=== PATIENT | male | born 1940 | race Caucasian/White ===

== ENCOUNTER → 2019-08-10 08:53 | Outpatient (CLI) | payer MEDICARE, OTHER, SELFPAY ==
--- NOTE | 2019-08-10 09:07 | RAD_ITS ---
STUDY: X-RAY CHEST REASON FOR EXAM: Male, 79 years old. cough and congestion for a couple weeks; sharp chest pain recently TECHNIQUE: PA and lateral views of the chest. COMPARISON: Prior study of 06/14/2017 FINDINGS: The lungs are clear and expanded. There is no demonstrated pleural abnormality. Normal size heart. Normal mediastinum and nette. Normal visualized pulmonary arteries. There are calcified plaques of the aortic arch. There are diffuse degenerative changes of the visualized thoracic spine. Normal visualized ribs, clavicles, and shoulders. There is no demonstrated abnormality of the visualized soft tissue structures of the upper abdomen. RAD/Chest PA and Lateral IMPRESSION: Calcified plaques of the aortic arch. Degenerative changes of the thoracic spine. No acute cardiopulmonary disease process is seen. Electronically Signed: Zaik Rocha MD at 19:51 EDT , Service support ,
== END ==
PROVIDERS: PCP Family Medicine; Referring Provider Physician Assistant; Visit Provider Physician Assistant
DX: R05 Cough (principal)
CPT/HCPCS: 71046

== ENCOUNTER 2020-03-18 17:49 | Emergency (ER) | payer MEDICARE, OTHER, SELFPAY ==
[2020-03-18 17:51] VITALS: BP 138/81; PULSE 89; RESP 18; TEMP 36.3; O2SAT 98; BMI 28.8
--- NOTE | 2020-03-18 18:09 | EKG12_ITS ---
Test Reason : ARM Blood Pressure : / mmHG Vent. Rate : 081 BPM Atrial Rate : 081 BPM P-R Int : 222 ms QRS Dur : 106 ms QT Int : 400 ms P-R-T Axes : 060 -40 053 degrees QTc Int : 464 ms Sinus rhythm with 1st degree A-V block Left axis deviation Abnormal ECG Confirmed by AMADO MARTINES, PURNIMA ([id number]), editor dictionary DUARTE ORTIZ ([id number]) on 03/21/2020 8:19:12 AM Referred By: PHOEBE Confirmed By:PURNIMA FISCHER MD
[2020-03-18] MEDS: HYDROcodone Bitartrate/Apap 5/325 Tablet PO (18:17)
--- NOTE | 2020-03-18 18:29 | RAD_ITS ---
STUDY: X-RAY - CERVICAL SPINE REASON FOR EXAM: Male, 79 years old. PAIN, NKI TECHNIQUE: 4 view(s) of the cervical spine were obtained. COMPARISON: None FINDINGS: Normal anterior atlantoaxial articulation. Normal odontoid process. There are expected age-related changes. Normal cervical lordosis. Normal vertebral bodies and endplates. Normal disc space heights. Normal visualized intervertebral neuroforamina. The soft tissue structures are unremarkable. RAD/Cerv Spine 2 or 3 Views IMPRESSION: No acute injury. Unremarkable age-appropriate cervical spine. Electronically Signed: Taras Bermudez, at 18:57 EDT Tel , Service support ,
--- NOTE | 2020-03-18 18:29 | RAD_ITS ---
STUDY: X-RAY - RIGHT SHOULDER REASON FOR EXAM: Male, 79 years old. PAIN TO SHOULDER AND NECK, NKI TECHNIQUE: 4 view(s) of the shoulder. COMPARISON: None. FINDINGS: Normal glenohumeral articulation. Normal acromioclavicular joint. Normal acromion. There are expected age-related degenerative changes in the joints. Normal humeral head and visualized proximal humerus. The soft tissue structures are unremarkable. Normal visualized pulmonary apex. RAD/Shoulder min 2 Views IMPRESSION: Unremarkable x-ray examination of the shoulder. Electronically Signed: Taras Bermudez, at 18:58 EDT Tel , Service support ,
--- NOTE | 2020-03-18 19:10 | ED.DCSUM_ITS ---
- ER Visit Summary Date of Service: 03/18/20 Chief Complaint: [Neck and right shoulder pain] History of Present Illness: The patient is a 79 M [presents to the emergency department complaint of pain in his neck that has had for about 4 5 days. Patient states yesterday started having discomfort into his right shoulder and across his right chest that is worse with movement. The pain is not pleuritic. He denies any injury that he knows of. Patient states that he did repeat of a sidewalk and was on his hands and knees working last week. Patient denies any pain shooting down the arm or numbness or tingling or weakness to the extremities. He denies any shortness of breath. And rates the pain is severe and keeps him up at night at times.] Physical Examination: [HEENT-PERRLA, EOMI. Cranial nerves II through XII grossly intact. TMs clear. Mucous membranes moist. No adenopathy. Patient has some mild diffuse C-spine tenderness on palpation.. Cardiovascular-regular rate and rhythm without murmur or ectopy Lungs-clear to auscultation, chest wall stable without crepitus or subcu emphysema Abdomen-normoactive bowel sounds, soft, nontender, no rebound or rigidity, no peritoneal signs. Extremities-intact ?4, normal range of motion, normal pulses, atraumatic. Right shoulder-patient has tenderness diffusely over the right deltoid as well as the glenohumeral joint. Patient has tenderness over the insertion of the pectoralis tendon into the shoulder. I am able to reproduce patient's pain with palpation of these areas.] She has normal range of motion at the shoulder, elbow, and wrist. Normal pulses. Normal strength. Test Results: [X-rays of the right shoulder and C-spine were obtained which showed no fractures or dislocations. Patient had degenerative changes of the cervical spine noted.] Emergency Department Course and Treatment: [Was given Parachute p.o. and really did not get much pain relief with that. Patient was given Dilaudid 1 mg IM and Zofran 4 mg IM.] Treatment Plan: Patient will be given a prescription for Flexeril and Percocet. Patient advised to follow-up with his primary care physician within next 3 to 5 days.] Disposition: [Discharged home in stable condition] Impression: [Atraumatic neck pain Right shoulder pain] This note was generated with Dragon dictation software. It may contain incorrect words, spelling, and punctuation that were not noted in review of the chart prior to signing ED Disposition - Plan for ED Patient: Referrals: Gray Abdullahi MD [Primary Care Provider] -
--- NOTE | 2020-03-18 19:13 | ED.DEP ---
ED Disposition - Plan for ED Patient: Instructions: ED Neck Pain, Shoulder Problems Prescriptions: cycloBENZAPRine HCl [Flexeril] 10 mg PO TID PRN #20 tab PRN Reason: Muscle Spasm Prescription Printed Oxycodone HCl/Acetaminophen [Percocet 5/325] 1 tab PO Q6H PRN PRN 5 Days #20 tab PRN Reason: Pain Score 4-10 Prescription Printed Referrals: Gray Abdullahi MD [Primary Care Provider] - 3-5 Days
[2020-03-18] MEDS: HYDROmorphone 1 MG/ML Syringe IM (19:22)
[2020-03-18] MEDS: Ondansetron 4 MG/2 ML Vial IM (19:22)
== END 2020-03-18 19:26 | disposition home or self-care (01) ==
LOC: ED 18:17
PROVIDERS: Emergency Provider Emergency Medicine; PCP Family Medicine
DX: M54.2 Cervicalgia (principal); M25.511 Pain in right shoulder; I10 Essential (primary) hypertension; Z79.899 Other long term (current) drug therapy
CPT/HCPCS: 72040; 73030; 93005; 96372; 99281; 99283; J2405

== ENCOUNTER → 2022-06-12 | Outpatient (CLI) | payer MEDICARE, OTHER, SELFPAY ==
[2022-06-12 15:40] LABS: Mucous, Urine 0 SEEN /hpf (<or=2+); Red Blood Cells-Urine 0 SEEN /hpf (0-5)
[2022-06-12 17:03] LABS: Glucose, Dipstick 50 mg/dl (Normal); Ketone-Dipstick 5 mg/dl (Negative); Leukocyte Esterase-Dipstick 25 /ul (Negative); Nitrite-Dipstick Negative (Negative); Occult Blood-Urine 25 /ul (Negative); Protein-Dipstick 30 mg/dl (Negative); Urine Bilirubin Dipstick Negative (Negative); Urine Urobilinogen Normal (Normal)
[2022-06-12 17:09] LABS: Absolute Lymphocyte Count 2.64 X10^3/uL (0.83-4.51); Absolute Neutrophil Count 4.8 X10^3/uL (2.0-7.7); Basophil# 0.04 X10^3/uL; Basophil% 0.5 % (0-1); Eosinophil# 0.14 X10^3/uL; Eosinophils% 1.7 % (0-5); Hematocrit 37.1 % (40-54); Hemoglobin 12.5 g/dL (13.0-16.5); Lymphocyte # 2.64 X10^3/ul (0.83-4.51); Lymphocyte % 31.4 % (19-41); Mean Corp Hgb Conc 33.7 g/dL (32-36); Mean Corpuscular Hgb 31.5 pg (27.0-32.0); Mean Corpuscular Volume 93.5 fL (80-94); Mean Platelet Vol. 9.4 fl (6.2-12.0); Monocyte# 0.73 X10^3/uL; Monocyte% 8.7 % (0-10); NRBC Flagged by Analyzer 0 % (0-5); Neutrophil # 4.84 X10^3/uL (2.7-7.7); Neutrophil % 57.3 % (47-70); Platelet Count 385 K/mm3 (150-450); RBC Distribution Width CV 12.5 % (11.6-14.6); RBC Distribution Width SD 43.6 fl (35.1-43.9); Red Blood Count 3.97 M/mm3 (4.6-6.2); White Blood Count 8.4 K/mm3 (4.4-11.0)
[2022-06-12 17:09] LABS: Color, Urine Yellow (Yellow); Urine Clarity Clear (Clear)
[2022-06-12 17:10] LABS: Bacteria RARE /hpf (None Seen); Squamous Epithelial Cells - UA 0-5 SEEN /hpf (0-5); White Blood Cells 0-5 SEEN /hpf (0-5)
[2022-06-12 17:37] LABS: Erythrocyte Sedimentation Rate 50 mm/hr (0-20)
[2022-06-12 17:59] LABS: ALB/GLOB Ratio 0.8 RATIO (0.9-2.4); AST(SGOT) 10 U/L (15-37); Alanine Aminotransfer ALT/SGPT 21 U/L (16-61); Albumin, Serum 3.7 g/dL (3.2-5.0); Alkaline Phosphatase 49 U/L (45-117); Anion Gap 10 (5-15); BUN 35 mg/dL (7-18); BUN/Creat Ratio 28.7 RATIO (10-20); Chloride 101 mmol/L (98-107); Creatinine, Serum 1.22 mg/dL (0.70-1.30); EST Glomerular Filtration Rate 61 mL/min (>60); Est Glom Filt Rate - Afr Amer 74 mL/min (>60); Globulin 4.6 g/dL (2.2-4.2); Glucose 141 mg/dL (74-106); Potassium 3.4 mmol/L (3.5-5.1); Protein, Total 8.3 g/dL (6.4-8.2); Rheumatoid Factor < 10.0 IU/mL (<15); Sodium Level 138 mmol/L (136-145)
[2022-06-12 18:23] LABS: HIV - WCH Non-Reactive (Nonreactive); Hepatitis B Surface Antibody Non-Reactive; Hepatitis B Surface Antigen Non-Reactive (Nonreactive); Hepatitis C Antibody Non-Reactive (Nonreactive)
[2022-06-17 22:25] LABS: Anti-Nuclear Antibody Test Negative (.)
== END | disposition home or self-care (01) ==
PROVIDERS: PCP Family Medicine; Visit Provider Dermatology
DX: M31.0 Hypersensitivity angiitis (principal); R53.83 Other fatigue
CPT/HCPCS: 36415; 80053; 81001; 82595; 82784; 82785; 84165; 85025; 85652; 86038; 86060; 86140; 86160; 86431; 86703; 86704; 86706; 86803; 87340

== ENCOUNTER → 2022-06-26 | Outpatient (CLI) | payer MEDICARE, OTHER, SELFPAY ==
[2022-06-26 11:45] LABS: Bacteria 0 SEEN /hpf (None Seen); Mucous, Urine 0 SEEN /hpf (<or=2+); Red Blood Cells-Urine 0 SEEN /hpf (0-5)
[2022-06-26 12:24] LABS: Color, Urine Yellow (Yellow); Glucose, Dipstick Normal (Normal); Ketone-Dipstick 5 mg/dl (Negative); Leukocyte Esterase-Dipstick 100 /ul (Negative); Nitrite-Dipstick Positive (Negative); Occult Blood-Urine 150 /ul (Negative); Protein-Dipstick 30 mg/dl (Negative); Urine Bilirubin Dipstick Negative (Negative); Urine Clarity Sl. Cloudy (Clear); Urine Urobilinogen Normal (Normal); Urine pH 6.5 (5.0 - 8.0)
[2022-06-26 12:35] LABS: Squamous Epithelial Cells - UA 0-5 SEEN /hpf (0-5)
[2022-06-26 12:36] LABS: Hyaline Cast 0-5 SEEN /lpf (0-5); White Blood Cells 10-25 SEEN /hpf (0-5)
== END | disposition home or self-care (01) ==
LOC: LAB 11:29
PROVIDERS: PCP Family Medicine; Referring Provider Dermatology; Visit Provider Dermatology
DX: M31.0 Hypersensitivity angiitis (principal); R80.9 Proteinuria, unspecified
CPT/HCPCS: 81001; 87086; 87088